=== PATIENT | female | born 1985 | race Caucasian/White ===

== ENCOUNTER → 2019-11-02 | Emergency (ER) | payer OTHER ==
[~2019-11-02] VITALS: Ht 157.4 cm; Wt 77.1 kg
[~2019-11-02] MED LIST: NORCO 10-325 T1 EACH PO
== END ==
LOC: ED 07:49
DX: S63.501A Unspecified sprain of right wrist, initial encounter (principal); Z88.0 Allergy status to penicillin; Z88.2 Allergy status to sulfonamides; Z88.8 Allergy status to other drugs, medicaments and biological substances; W18.39XA Other fall on same level, initial encounter; Y93.89 Activity, other specified; Y92.89 Other specified places as the place of occurrence of the external cause; Y99.8 Other external cause status